=== PATIENT | male | born 1955 | race Caucasian/White ===

== ENCOUNTER → 2025-01-13 08:55 | Outpatient (REF) | payer MEDICARE, OTHER, SELFPAY | LOC: RAD 08:55 | PROVIDERS: ATTENDING PHYSICIAN Physician Assistant Medical | DX: Z87.891 Personal history of nicotine dependence (principal) | CPT/HCPCS: 71046 ==

== ENCOUNTER → 2025-01-20 07:05 | Outpatient (REF) | payer MEDICARE, OTHER, SELFPAY | LOC: RAD 07:05 | PROVIDERS: ATTENDING PHYSICIAN Physician Assistant Medical | DX: Z87.891 Personal history of nicotine dependence (principal) | CPT/HCPCS: 76770 ==

== ENCOUNTER 2025-09-01 15:45 | Emergency (ER) | payer MEDICARE, OTHER, SELFPAY ==
[2025-09-01 15:54] VITALS: BP 157/90
--- NOTE | 2025-09-01 16:24 | ED.GENMED ---
History of Present Illness
General
Chief Complaint: Skin Surface Trauma
Source: patient
Exam Limitations: none
Time Seen by Provider: 09/01/25 16:09
Nursing documentation reviewed up to this point in time: agreed with
History of Present Illness
History of Present Illness:
pt is a 70 y/o M with R index finger avulsion of the skin from mandolin he was using to cut carrots
no AC
no numbness/tingling/weakness
mild pain
bleeding won't stop
incident 1 hr [employer]
Past History
Past History
ED Past Medical History: Cancer (renal)
Social History
Tobacco: Former smoker
Alcohol: None
Review of Systems
Review of Systems
Allergies reviewed?: Yes
All Other Systems: Not applicable
Phy Exam
Physical Exam
Physical Exam:
GENERAL: Alert , in no apparent distress, comfortable at rest
HEAD: NCAT
CV: 2+ radial pulse, cap refill intact
NEUROLOGICAL: Alert and oriented, no focal neuro deficits, , 5/5 strength, sensation intact, ambulation slight limp right leg
SKIN: Warm and dry, patient has a 0.75 x 0.25 Rishi shaped skin avulsion to the fingertip of the right index finger which is oozing actively
MUSCULOSKELETAL: Fingertip injury to the skin otherwise full range of motion
PSYCH: Normal and appropriate interaction.
Course
Orders/Labs/Results
Orders:
Orders
09/01/25 16:29
Tetanus/Diphth/Acelpertussis [Adacel] 0.5 ml IM .ONCE ONE
Vital Signs
Initial and Last Documented VS:
Initial Vital Signs
Temp Pulse Resp BP Pulse Ox
36.7 C 98 16 157/90 98
09/01/25 15:54 09/01/25 15:54 09/01/25 15:54 09/01/25 15:54 09/01/25 15:54
Last Documented Vital Signs
Temp Pulse Resp BP Pulse Ox
36.7 C 98 16 157/90 98
09/01/25 15:54 09/01/25 15:54 09/01/25 15:54 09/01/25 15:54 09/01/25 16:29
MDM/Problems Addressed
Differential Diagnosis Includes:
Skin avulsion
MDM/Problems Addressed:
70-year-old male with no history of anticoagulant use presents for skin avulsion of the fingertip of the right index finger about an hour before arrival, could not control the bleeding at home. On exam there is a subcutaneous skin avulsion to the
subcutaneous skin but with active oozing, no pulsation, wound irrigated and dressed with Gelfoam, required a second attempt of Gelfoam
Tetanus shot will be boostered here
note that pt had rebleeding after 2nd gelfoam
he had a squirting capillary
injected locally with very small lido with epi
observed without dressing in place
no re bleeding
then replaced with gel foam and dressing
observed and no re bleeding
d/c home
*Pulse Oximetry
SaO2: 98
Oxygen Mode of Delivery: Room air
Patient hypoxic: no (98)
*Critical Care Note
Total Time (30-74mins, 75-104mins- exclusive of procedures): Not Applicable
ED Attending Note
-
Portions of this chart may have been created with voice recognition software.� Occasional wrong word or��sound alike� substitutions may have occurred due to the inherent limitations of voice recognition software.
Discharge Plan
Departure
Patient Disposition: Home (Routine Discharge)
Date of Disposition: 09/01/25
Time of Disposition: 16:49
Patient with high blood pressure during this ER visit?: Yes
Discharge Problem:
Avulsion of skin of finger
Instructions: Wound Care (DC)
Prescriptions:
No Action
No Current Medications
Referrals:
Hemple,Dallin, PA-C [Family Provider, Family Practice]
Activity Restrictions/Additional Instructions:
leave the wound dressed for 48 hours, after that you can remove the dressing and get it wet. The Gelfoam should have dissolved or partially dissolved to stop the bleeding. Return for any concerns like rebleeding or pain.
Interventions
Interventions:
*General Assessment Last Done: 09/01/25 15:54
*Neglect/Abuse Screening Last Done: 09/01/25 15:54
*ED COVID-19 Vaccine History Last Done: 09/01/25 15:54
*ED Influenza Vaccine History Last Done: 09/01/25 15:54
*Risk Screen - Suicide (C-SSRS) Last Done: 09/01/25 15:54
*Nursing Disposition Last Done: 09/01/25 17:28
ED-Skin Assessment Last Done: 09/01/25 17:00
Discharge Date and Time
Discharge Date/Time: 09/01/25 17:28
Print Language: SERBIAN
[2025-09-01] MEDS: ADACEL 0.5 ML IM (16:37)
== END 2025-09-01 17:28 | disposition home or self-care (01) ==
LOC: EMR 15:45
PROVIDERS: EMERGENCY PHYSICIAN Emergency Medicine; FAMILY PHYSICIAN Physician Assistant Medical
DX: S61.200A Unspecified open wound of right index finger without damage to nail, initial encounter (principal); W27.4XXA Contact with kitchen utensil, initial encounter; Z87.891 Personal history of nicotine dependence; Z23 Encounter for immunization
CPT/HCPCS: 90471; 99282; 90715